=== PATIENT | male | born 1945 | race Caucasian/White ===

== ENCOUNTER 2021-12-27 09:47 | Outpatient (CLI) | payer OTHER ==
[2021-12-27 11:09] LABS: #Eosinphils 0.3 10x3/uL (0.0-0.5); #Monocytes 0.5 10x3/uL (0.0-1.1); #Neutrophils 4.1 10x3/uL (1.5-8.4); %Basophils 0.5 % (0.0-2.0); %Lymphocytes 22.8 % (18.0-47.0); %Monocytes 8.4 % (0.0-10.0); %Neutrophils 64.1 % (40.0-75.0); Hemoglobin 16.1 g/dL (13.5-17.5); Mean Corpuscular HGB CONC 31.7 g/dL (32.0-36.0); Mean Corpuscular Hemoglobin 30.6 pg (27.0-33.0); Mean Corpuscular Volume 96.4 fl (81.2-95.1); Mean Platelet Volume 9.1 fl (7.4-10.4); Platelet Count 203 10x3/uL (150-450); RBC Distribution Width 13.6 % (11.5-14.5); Red Blood Cell (RBC) Count 5.27 10x6/uL (4.32-5.72); White Blood Cell (WBC) Count 6.3 10x3/uL (3.5-10.5)
[2021-12-27 11:23] LABS: Anion Gap 12 mmol/L (10-20); BUN (Urea Nitrogen) 19 mg/dL (8.4-25.7); Calc. Creatinine Clearance 0 mL/min (70-130); Calcium 9.2 mg/dL (7.8-10.44); Carbon Dioxide 25 mmol/L (23-31); Chloride 106 mmol/L (98-107); Glucose 98 mg/dL (83-110); Potassium 4.4 mmol/L (3.5-5.1); Sodium 139 mmol/L (136-145)
[2021-12-27 11:24] LABS: Prothrombin Time 10.5 sec (9.5-12.1)
== END 2021-12-27 09:48 | disposition home or self-care (01) ==
LOC: LABBT 09:47
PROVIDERS: ATTEND Orthopaedic Surgery
DX: Z01.818 Encounter for other preprocedural examination (principal); M17.12 Unilateral primary osteoarthritis, left knee; Z20.822 Contact with and (suspected) exposure to COVID-19
CPT/HCPCS: 80048; 85025; 85610; 87081; U0003; U0005

== ENCOUNTER 2022-01-01 05:25 | Observation (INO) | payer OTHER ==
[2021-12-28 13:20] VITALS: BMI 25.7
[2022-01-01] MEDS ORDERED: Midazolam HCl 2 mg/2 ml Vial ONE (06:14)
[2022-01-01] MEDS ORDERED: fentaNYL Citrate/PF 100 MCG/2 ML SYRINGE ONE (06:14)
[2022-01-01] MEDS ORDERED: Tranexamic Acid 1,000 MG/10 ML VIAL ONE (06:22)
[2022-01-01] MEDS ORDERED: Vancomycin (BATCH) 1.5 GRAM/300 ML BAG ONE (06:23)
[2022-01-01] MEDS ORDERED: Sodium Chloride 0.9% 0 ML ONE (06:24)
[2022-01-01] MEDS ORDERED: Lidocaine 1% PF 5 ML VIAL ONE (06:36)
[2022-01-01] MEDS ORDERED: Ondansetron PF 4 MG/2 ML Vial ONE ×3 (06:36→09:16)
[2022-01-01] MEDS ORDERED: PROPOFOL 200 MG/20 ML VIAL ONE (06:36)
[2022-01-01] MEDS ORDERED: Ropivacaine 0.5% HCl/PF (150 MG/30 ML VIAL) ONE (06:36)
[2022-01-01] MEDS ORDERED: Bupivacaine PF 0.5% 30 ML VIAL ONE (06:41)
[2022-01-01] MEDS ORDERED: Lidocaine 1% (PF) 30 ML VIAL ONE (06:42)
[2022-01-01] MEDS ORDERED: CEFAZOLIN 2 GM VIAL ONE (06:50)
[2022-01-01] MEDS ORDERED: Sodium Chloride 0.9% 100 ML ONE (06:50)
[2022-01-01] MEDS ORDERED: HYDROcodone/Acetaminophen 10/325 mg Tablet PO PRN ×2 (08:15)
[2022-01-01] MEDS ORDERED: Zolpidem Tartrate 5 MG TAB PO PRN ×2 (08:15→08:44)
[2022-01-01] MEDS ORDERED: Ropivacaine 0.2% 550 ML 550 ML NERVE BLCK SCH (08:15)
[2022-01-01] MEDS ORDERED: Promethazine HCl 25 MG/ML VIAL IM PRN ×3 (08:15→08:56)
[2022-01-01] MEDS ORDERED: traMADol HCl 50 MG TAB PO PRN (08:15)
[2022-01-01] MEDS ORDERED: Ondansetron PF 4 MG/2 ML Vial IVP PRN (08:44)
[2022-01-01] MEDS ORDERED: Acetaminophen 325 MG TAB PO PRN (08:44)
[2022-01-01] MEDS ORDERED: diphenhydrAMINE 25 MG CAP PO PRN (08:44)
[2022-01-01] MEDS ORDERED: ceFAZolin 2 GM/Dextrose 50 ML 2 GM in Premix Bag 1 BAG IVPB SCH (08:45)
[2022-01-01] MEDS ORDERED: Ketorolac Tromethamine 30 MG/ML VIAL IVP PRN (08:56)
[2022-01-01] MEDS ORDERED: Promethazine HCl 25 MG/ML VIAL IVPB PRN (08:56)
[2022-01-01] MEDS ORDERED: Ondansetron HCl/PF 4 MG/2 ML Vial IVP PRN (08:56)
[2022-01-01] MEDS ORDERED: Aspirin 81 mg Enteric Coated Tablet PO SCH (09:00)
[2022-01-01] MEDS ORDERED: Fentanyl 100 MCG/2 ML VIAL ONE (09:18)
[2022-01-01] MEDS: Ketorolac Tromethamine 30 MG/ML VIAL IVP SCH ×3 (12:20→23:19)
[2022-01-01] MEDS: Sodium Chloride 0.9% 1,000 ML IV SCH ×2 (12:22→21:28)
[2022-01-01] MEDS: Ferrous Gluconate 324 MG TAB PO SCH ×2 (12:35→21:26)
[2022-01-01] MEDS: Carvedilol 6.25 MG TAB PO SCH ×2 (12:35→21:27)
[2022-01-01] MEDS: Multivitamin W/ Minerals 1 TAB PO SCH (12:35)
[2022-01-01] MEDS: Senokot S 8.6-50 MG TAB PO SCH ×2 (12:36→21:27)
[2022-01-01] MEDS: Lisinopril 5 MG TAB PO SCH (12:39)
[2022-01-01] MEDS ORDERED: ceFAZolin (BATCH) 2 GM in Premix Bag 1 BAG IVPB SCH (15:00)
[2022-01-01] MEDS: Aspirin 81 mg Enteric Coated Tablet PO SCH (15:58)
[2022-01-01] MEDS: Calcium Carbonate 500 MG ChewTAB PO SCH (16:11)
[2022-01-01] MEDS: traMADol HCl 50 MG TAB PO PRN (16:11)
[2022-01-01] MEDS: CEFAZOLIN 2 GM in Sodium Chloride 0.9% 100 ML IVPB SCH ×2 (16:13→23:20)
[2022-01-01] MEDS: Ondansetron PF 4 MG/2 ML Vial IVP PRN (17:33)
[2022-01-01] MEDS ORDERED: Mirtazapine 30 MG TAB PO SCH (21:00)
[2022-01-01] MEDS ORDERED: traZODone HCl 50 MG TAB PO SCH (21:00)
[2022-01-01] MEDS ORDERED: Gabapentin 300 MG CAP PO SCH (21:00)
[2022-01-01] MEDS ORDERED: Atorvastatin Calcium 20 MG TAB PO SCH (21:00)
[2022-01-01] MEDS: hydrOXYzine 25 MG TAB PO SCH (21:25)
[2022-01-02] MEDS: traMADol HCl 50 MG TAB PO PRN (05:14)
[2022-01-02] MEDS: Sodium Chloride 0.9% 1,000 ML IV SCH (05:15)
[2022-01-02] MEDS: Ketorolac Tromethamine 30 MG/ML VIAL IVP SCH (05:25)
[2022-01-02 05:32] LABS: Hemoglobin 13.2 g/dL (14.0-18.0); Mean Corpuscular HGB CONC 31.9 g/dL (32.0-36.0); Mean Corpuscular Hemoglobin 31.8 pg (27.0-31.0); Mean Corpuscular Volume 99.7 fL (78.0-98.0); Mean Platelet Volume 6.6 fL (7.4-10.4); Platelet Count 173 thou/uL (130-400); RBC Distribution Width 12.3 % (11.5-14.5); Red Blood Cell (RBC) Count 4.17 mill/uL (4.70-6.10); White Blood Cell (WBC) Count 7.2 thou/uL (4.8-10.8)
[2022-01-02] MEDS: Ondansetron PF 4 MG/2 ML Vial IVP PRN (08:02)
[2022-01-02] MEDS: hydrOXYzine 25 MG TAB PO SCH (08:04)
[2022-01-02] MEDS: Aspirin 81 mg Enteric Coated Tablet PO SCH (08:04)
[2022-01-02] MEDS: Ferrous Gluconate 324 MG TAB PO SCH (08:04)
[2022-01-02] MEDS: Calcium Carbonate 500 MG ChewTAB PO SCH (08:05)
[2022-01-02] MEDS: Senokot S 8.6-50 MG TAB PO SCH (08:05)
[2022-01-02] MEDS: Multivitamin W/ Minerals 1 TAB PO SCH (08:05)
[2022-01-02] MEDS: Lisinopril 5 MG TAB PO SCH (08:05)
[2022-01-02] MEDS: Carvedilol 6.25 MG TAB PO SCH (08:05)
[2022-01-02 11:21] VITALS: BP 112/69; TEMP 98.4
== END 2022-01-02 11:19 | disposition home or self-care (01) ==
LOC: SDC 05:25 → SURG B 08:44 → SDC 10:18
PROVIDERS: ADMIT Orthopaedic Surgery; ATTEND Orthopaedic Surgery
PROC: 0SRD0J9 Replacement of Left Knee Joint with Synthetic Substitute, Cemented, Open Approach (ICD-10-PCS; principal; 2022-01-02)
PROC: 3E0T3BZ Introduction of Anesthetic Agent into Peripheral Nerves and Plexi, Percutaneous Approach (ICD-10-PCS; 2022-01-02)
DX: M17.12 Unilateral primary osteoarthritis, left knee (principal); Z79.02 Long term (current) use of antithrombotics/antiplatelets; Z79.82 Long term (current) use of aspirin; Z79.899 Other long term (current) drug therapy; Z88.0 Allergy status to penicillin; Z88.5 Allergy status to narcotic agent
CPT/HCPCS: 36415; 85027; 96365; 96375; 96376; A4306; C1713; C1776; G0378; J0690; J1885; J2001; J2250; J2405; J2704; J2795; J3010; J3370; J3490; J7050; S0020

== ENCOUNTER 2022-04-13 11:44 | Outpatient (CLI) | payer MEDICARE | END 2022-04-13 11:45 | disposition home or self-care (01) | LOC: NM 11:44 | PROVIDERS: ATTEND Physician Assistant Medical | DX: R10.11 Right upper quadrant pain (principal) | CPT/HCPCS: 78227; A9537 ==

== ENCOUNTER 2022-07-09 10:23 | Emergency (ER) | payer MEDICARE, OTHER ==
[2022-07-09] MEDS ORDERED: Iopamidol-370 76% 500 ML 1 ML ONE (10:58)
[2022-07-09] MEDS ORDERED: Morphine 4 MG/ML VIAL ONE (12:07)
[2022-07-09 12:20] LABS: #Eosinphils 0.1 thou/uL (0.0-0.7); #Lymphocytes 1.1 thou/uL (1.20-3.40); #Monocytes 0.6 thou/uL (0.11-0.59); #Neutrophils 4.4 thou/uL (1.40-6.50); %Basophils 0.7 % (0.0-1.0); %Eosinophils 1.3 % (0.0-10.0); %Lymphocytes 17.4 % (21.0-51.0); %Monocytes 8.8 % (0.0-10.0); %Neutrophils 71.8 % (42.0-75.0); Hemoglobin 15.9 g/dL (14.0-18.0); Mean Corpuscular HGB CONC 32.9 g/dL (32.0-36.0); Mean Corpuscular Hemoglobin 32.8 pg (27.0-31.0); Mean Corpuscular Volume 99.9 fl (78.0-98.0); Mean Platelet Volume 7.3 fL (7.4-10.4); Platelet Count 207 10x3/uL (130-400); Red Blood Cell (RBC) Count 4.86 mill/uL (4.70-6.10); White Blood Cell (WBC) Count 6.2 10x3/uL (4.8-10.8)
[2022-07-09 12:34] LABS: INR-International Normal Ratio 0.9; PTT 27.2 sec (22.9-36.1); Prothrombin Time 12.7 sec (12.0-14.7)
[2022-07-09 12:36] LABS: INR-International Normal Ratio 0.9; Prothrombin Time 12.9 sec (12.0-14.7)
[2022-07-09 12:37] LABS: D-Dimer Test 0.45 *mcg/mL (0.27-0.43)
[2022-07-09 12:38] LABS: ALT (SGPT) 17 U/L (8-55); AST (SGOT) 13 U/L (5-34); Albumin 3.9 g/dL (3.4-4.8); Alkaline Phosphatase 43 U/L (40-110); Anion Gap 11 mmol/L (10-20); BUN (Urea Nitrogen) 19 mg/dL (8.4-25.7); Bilirubin, Total 0.8 mg/dL (0.2-1.2); Calc. Creatinine Clearance 0 mL/min (70-130); Calcium 8.9 mg/dL (7.8-10.44); Carbon Dioxide 23 mmol/L (23-31); Chloride 108 mmol/L (98-107); Estimated GFR 87; Globulin 2.9 g/dL (2.4-3.5); Glucose 115 mg/dL (83-110); Protein, Total 6.8 g/dL (5.8-8.1); Sodium 138 mmol/L (136-145)
[2022-07-11 13:51] LABS: Cardiolipin IgA Ab 3.5 APL-U/mL (<14 Negative); Cardiolipin IgG Ab 0.8 GPL-U/mL (<10 Negative); Cardiolipin IgM Ab Less than 0.8 MPL-U/mL (<10 Negative); EliA APS New Method **** NEW METHOD ****
[2022-07-12 12:01] LABS: HEX PHOS LA Tube 1 41.8 SEC; HEX PHOS LA Tube 2 37.9 SEC; Hexagonal Phospholipid Neut 3.9 SEC (0-8.0); Protein C Activity 123 % (78-152)
== END 2022-07-09 16:10 | disposition home or self-care (01) ==
LOC: ERS 10:23
DX: M62.242 Nontraumatic ischemic infarction of muscle, left hand (principal); I10 Essential (primary) hypertension
CPT/HCPCS: 36415; 71045; 80053; 83090; 83605; 85025; 85240; 85300; 85303; 85305; 85307; 85379; 85598; 85610; 85730; 86147; 93005; 96374; J2270; Q9967

== ENCOUNTER 2022-08-20 11:27 | Outpatient (CLI) | payer MEDICARE, OTHER ==
[2022-08-20 13:12] LABS: #Basophils 0.1 10x3/uL (0.0-0.2); #Eosinphils 0.3 10x3/uL (0.0-0.5); #Monocytes 0.6 10x3/uL (0.0-1.1); #Neutrophils 3.9 10x3/uL (1.5-8.4); %Basophils 0.7 % (0.0-2.0); %Eosinophils 4.3 % (0.0-6.0); %Lymphocytes 28.8 % (18.0-47.0); %Monocytes 9.1 % (0.0-10.0); %Neutrophils 56.8 % (40.0-75.0); Mean Corpuscular HGB CONC 32.8 g/dL (32.0-36.0); Mean Corpuscular Hemoglobin 31.2 pg (27.0-33.0); Mean Platelet Volume 9.3 fl (7.4-10.4); Platelet Count 227 10x3/uL (150-450); RBC Distribution Width 13.2 % (11.5-14.5); Red Blood Cell (RBC) Count 4.81 10x6/uL (4.32-5.72); White Blood Cell (WBC) Count 6.9 10x3/uL (3.5-10.5)
[2022-08-20 14:11] LABS: ALT (SGPT) 12 U/L (8-55); AST (SGOT) 16 U/L (5-34); Albumin 4.1 g/dL (3.4-4.8); Alkaline Phosphatase 53 U/L (40-110); Anion Gap 11 mmol/L (10-20); BUN (Urea Nitrogen) 16 mg/dL (8.4-25.7); Bilirubin, Direct 0.2 mg/dL (0.1-0.3); Bilirubin, Total 0.4 mg/dL (0.2-1.2); Calc. Creatinine Clearance 0 mL/min (70-130); Calcium 8.7 mg/dL (7.8-10.44); Carbon Dioxide 24 mmol/L (23-31); Chloride 108 mmol/L (98-107); Estimated GFR 82; Glucose 85 mg/dL (83-110); Potassium 4.1 mmol/L (3.5-5.1); Protein, Total 6.7 g/dL (5.8-8.1); Sodium 139 mmol/L (136-145)
== END 2022-08-20 11:28 | disposition home or self-care (01) ==
LOC: LABBT 11:27
PROVIDERS: ATTEND Surgery
DX: Z01.812 Encounter for preprocedural laboratory examination (principal); K82.8 Other specified diseases of gallbladder
CPT/HCPCS: 80048; 80076; 85025

== ENCOUNTER 2022-08-23 06:55 | Day surgery (SDC) | payer MEDICARE, OTHER ==
[2022-08-21 13:31] VITALS: BMI 25.7
[2022-08-23] MEDS ORDERED: Bupivacaine/Epinephrine 0.25% 30 ML VIAL ONE (08:35)
[2022-08-23] MEDS ORDERED: fentaNYL PF 100 MCG/2 ML SYRINGE ONE (08:39)
[2022-08-23] MEDS ORDERED: SUGAMMADEX SODIUM 200 MG/2 ML VIAL ONE (08:40)
[2022-08-23] MEDS ORDERED: Levofloxacin 500 mg/D5W 100 ml Premix Bag ONE (08:44)
[2022-08-23] MEDS ORDERED: PROPOFOL 200 MG/20 ML VIAL ONE (08:51)
[2022-08-23] MEDS ORDERED: Dexamethasone 20 MG/5 ML VIAL ONE (08:51)
[2022-08-23] MEDS ORDERED: Lidocaine 1% PF 5 ML VIAL ONE (08:51)
[2022-08-23] MEDS ORDERED: Rocuronium Bromide 10 MG/ML (10ML VIAL) ONE (08:51)
[2022-08-23] MEDS ORDERED: Ondansetron PF 4 MG/2 ML Vial ONE (08:51)
[2022-08-23] MEDS ORDERED: Fentanyl 100 MCG/2 ML VIAL ONE ×2 (09:40→09:52)
[2022-08-23] MEDS ORDERED: HYDROmorphone 2 MG/ML VIAL SLOW IVP PRN (09:43)
[2022-08-23] MEDS ORDERED: Promethazine HCl 25 MG/ML VIAL IM PRN (09:43)
[2022-08-23] MEDS ORDERED: Ondansetron HCl/PF 4 MG/2 ML Vial IVP PRN (09:43)
[2022-08-23] MEDS ORDERED: HYDROmorphone 0.5 MG/0.5 ML SYRINGE ONE (10:09)
[2022-08-23] MEDS ORDERED: Labetalol HCl 100 MG/20 ML VIAL ONE (10:13)
[2022-08-23] MEDS ORDERED: HYDROcodone/Acetaminophen 5/325 mg Tablet ONE (11:10)
== END 2022-08-23 12:00 | disposition home or self-care (01) ==
LOC: SDC 06:55
PROVIDERS: ATTEND Surgery
PROC: 0FT44ZZ Resection of Gallbladder, Percutaneous Endoscopic Approach (ICD-10-PCS; principal; 2022-08-23)
DX: K81.1 Chronic cholecystitis (principal); K82.8 Other specified diseases of gallbladder; Z79.01 Long term (current) use of anticoagulants; Z79.82 Long term (current) use of aspirin; Z79.899 Other long term (current) drug therapy; Z88.0 Allergy status to penicillin; Z88.5 Allergy status to narcotic agent
CPT/HCPCS: 47562; C1889; 88304; J1100; J1170; J1956; J2405; J2704; J3010

== ENCOUNTER 2022-10-17 08:32 | Outpatient (CLI) | payer OTHER | END 2022-10-17 08:33 | disposition home or self-care (01) | LOC: SCSMRI 08:32 | PROVIDERS: ATTEND Orthopaedic Surgery | DX: M47.26 Other spondylosis with radiculopathy, lumbar region (principal); M16.11 Unilateral primary osteoarthritis, right hip; Z98.890 Other specified postprocedural states | CPT/HCPCS: 72158; 82565 ==

== ENCOUNTER 2022-10-29 14:05 | Outpatient (CLI) | payer OTHER | END 2022-10-29 14:06 | disposition home or self-care (01) | LOC: TBSIIMAG 14:05 | PROVIDERS: ATTEND Orthopaedic Surgery | DX: M16.11 Unilateral primary osteoarthritis, right hip (principal) ==